=== PATIENT | female | born 1960 | race American Indian/Alaskan Native ===

== ENCOUNTER 2020-09-26 01:43 | Emergency (ER) | payer OTHER ==
[2020-09-26] MEDS ORDERED: KETOROLAC 30 MG/1 ML INJ IM ONE (05:32)
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
[2020-09-26 06:30] VITALS: BP 157/94
== END 2020-09-26 06:29 | disposition home or self-care (01) ==
LOC: ED 01:43
DX: M54.5 Low back pain (principal); I10 Essential (primary) hypertension; Z90.710 Acquired absence of both cervix and uterus; Z98.890 Other specified postprocedural states; Z79.899 Other long term (current) drug therapy; Z88.2 Allergy status to sulfonamides
CPT/HCPCS: 96372; 99282; J1885